=== PATIENT | female | born 1980 | race Hispanic/Latino ===

== ENCOUNTER 2021-07-31 15:18 | Emergency (ER) | payer BC, OTHER ==
[~2021-07-31] VITALS: Ht 162.6 cm; Wt 104.3 kg
[2021-07-31] MEDS ORDERED: NAPROSYN500 MG PO (16:22)
== END 2021-07-31 16:16 | disposition home or self-care (01) ==
LOC: FSED 15:23
DX: S93.401A Sprain of unspecified ligament of right ankle, initial encounter (principal); W01.0XXA Fall on same level from slipping, tripping and stumbling without subsequent striking against object, initial encounter; Y93.01 Activity, walking, marching and hiking
CPT/HCPCS: 99283

== ENCOUNTER 2022-04-10 09:50 | Emergency (ER) | payer BC ==
[~2022-04-10] VITALS: Ht 165.1 cm; Wt 113.1 kg
[~2022-04-10 09:50] MED LIST: NAPROSYN500 MG PO
[2022-04-10] MEDS ORDERED: CLONIDINE HCL 0.1 MG TAB PO ONE ×2 (10:30→11:30)
[2022-04-10] MEDS ORDERED: HYDRALAZINE HCL 20 MG/ML VIAL IV ONE (10:30)
[2022-04-10] MEDS ORDERED: LOSARTAN POTASS25 MG PO (10:31)
[2022-04-10] MEDS ORDERED: HYDROCHLOROTHIA25 MG PO (10:31)
[2022-04-10] MEDS ORDERED: CLONIDINE HCL 0.1 MG TAB ONE ×2 (10:34→11:51)
[2022-04-10] MEDS ORDERED: HYDRALAZINE HCL 20 MG/ML VIAL ONE (10:35)
[2022-04-10 13:21] VITALS: BP 182/87
== END 2022-04-10 13:25 | disposition home or self-care (01) ==
LOC: FSED 10:09
DX: R07.89 Other chest pain (principal); I16.0 Hypertensive urgency; R94.31 Abnormal electrocardiogram [ECG] [EKG]
CPT/HCPCS: 80053; 81003; 81025; 82553; 83880; 84484; 85025; 93005; 96374; 99284; J0360